=== PATIENT | male | born 1970 | race Caucasian/White ===

== ENCOUNTER → 2021-01-07 | Outpatient (REF) | payer OTHER | LOC: M LAB REF 09:41 | PROVIDERS: ATTEND Internal Medicine Endocrinology, Diabetes & Metabolism | DX: E04.1 Nontoxic single thyroid nodule (principal); E07.89 Other specified disorders of thyroid ==

== ENCOUNTER → 2021-02-11 | Outpatient (REF) | payer OTHER | LOC: M LAB REF 19:10 | PROVIDERS: ATTEND Internal Medicine Endocrinology, Diabetes & Metabolism | DX: E04.2 Nontoxic multinodular goiter (principal) ==

== ENCOUNTER → 2022-08-31 | Outpatient (CLI) | payer OTHER | LOC: M RAD 11:26 | PROVIDERS: ATTEND Student in an Organized Health Care Education/Training Program | DX: M25.572 Pain in left ankle and joints of left foot (principal) ==